=== PATIENT | male | born 1965 | race Asian ===

== ENCOUNTER 2018-08-08 18:08 | Inpatient (IN) | payer MEDICAID ==
[~2018-08-08] VITALS: Ht 175.3 cm; Wt 63.1 kg
[2018-08-08] MEDS ORDERED: OLANZapine 5 MG RAPDIS TABLET PO PRN (19:45)
[2018-08-08] MEDS ORDERED: ZOLPIDEM TARTRATE 10 MG TABLET PO PRN (19:45)
[2018-08-08] MEDS ORDERED: LORazepam 2 MG/ML VIAL ONE (20:14)
[2018-08-08] MEDS ORDERED: DiphenhydrAMINE HCL 50 MG/ML VIAL ONE (20:14)
[2018-08-08] MEDS ORDERED: DiphenhydrAMINE HCL 50 MG/ML VIAL IM ONE (20:15)
[2018-08-08] MEDS ORDERED: HALOPERIDOL LACTATE 5 MG/ML VIAL ONE (20:15)
[2018-08-08] MEDS ORDERED: LORazepam 2 MG/ML VIAL IM ONE (20:15)
[2018-08-08] MEDS ORDERED: HALOPERIDOL LACTATE 5 MG/ML VIAL IM ONE (20:15)
[2018-08-08] MEDS ORDERED: PNEUMOCOCCAL VACCINE POLYVALENT 0.5 ML VIAL [PPSV23] IM ONE (20:15)
[2018-08-08 20:25] VITALS: BP 139/78
[2018-08-08] MEDS: DIVALPROEX SODIUM 500 MG ER TABLET PO SCH (21:00)
[2018-08-08] MEDS ORDERED: RisperiDONE 3 MG TABLET PO SCH (21:00)
[2018-08-09] MEDS: LORazepam 1 MG TABLET PO PRN ×2 (08:00→16:13)
[2018-08-09 08:45] VITALS: BP 125/85
[2018-08-09] MEDS ORDERED: TUBERCULIN, PURIFIED PROTEIN DERIVATIVE 5 TU/0.1 ML SYRINGE ID ONE (14:15)
[2018-08-09] MEDS ORDERED: PROMETHAZINE HCL 25 MG TABLET PO PRN (14:15)
[2018-08-09] MEDS ORDERED: LOPERAMIDE HCL 2 MG CAPSULE PO PRN (14:15)
[2018-08-09] MEDS ORDERED: HydrOXYzine PAMOATE 50 MG CAPSULE PO PRN (14:15)
[2018-08-09] MEDS ORDERED: ACETAMINOPHEN 325 MG TABLET PO PRN (14:15)
[2018-08-09] MEDS ORDERED: MAG HYDROX/AL HYDROX/SIMETH ES 30 ML SUSPENSION UDCUP PO PRN (14:15)
[2018-08-09] MEDS ORDERED: GuaiFENesin/D-METHORPHAN [SUGAR-FREE] 200-20MG/10 ML SYRUP UDCUP PO PRN (14:15)
[2018-08-09] MEDS ORDERED: MAGNESIUM HYDROXIDE SUSPENSION 30 ML UDCUP PO PRN (14:15)
[2018-08-09 16:00] VITALS: BP 137/88
[2018-08-09] MEDS: THIAMINE HCL 100 MG TABLET PO SCH (16:13)
[2018-08-09] MEDS: DIVALPROEX SODIUM 500 MG ER TABLET PO SCH (21:00)
[2018-08-09] MEDS ORDERED: OLANZapine 5 MG RAPDIS TABLET PO SCH (21:00)
[2018-08-10 00:52] VITALS: BP 139/89
[2018-08-10] MEDS: FOLIC ACID 1 MG TABLET PO SCH (08:28)
[2018-08-10] MEDS: MULTIVITAMINS WITH MINERALS, THERAPEUTIC TABLET PO SCH (08:28)
[2018-08-10] MEDS: THIAMINE HCL 100 MG TABLET PO SCH ×2 (08:28→17:00)
[2018-08-10] MEDS: LORazepam 1 MG TABLET PO PRN (08:28)
[2018-08-10 08:47] VITALS: BP 134/70
[2018-08-10 16:00] VITALS: BP 128/85
[2018-08-10] MEDS ORDERED: RisperiDONE 1 MG TABLET PO PRN (17:15)
[2018-08-10] MEDS: RisperiDONE 1 MG TABLET PO SCH (21:00)
[2018-08-10] MEDS ORDERED: RisperiDONE MICROSPHERES 50 MG/2 ML SYRINGE IM ONE (21:00)
[2018-08-10] MEDS: DIVALPROEX SODIUM 500 MG ER TABLET PO SCH (21:00)
[2018-08-11 05:17] VITALS: BP 124/73
[2018-08-11] MEDS: FOLIC ACID 1 MG TABLET PO SCH (08:22)
[2018-08-11] MEDS: THIAMINE HCL 100 MG TABLET PO SCH ×2 (08:23→17:00)
[2018-08-11] MEDS: MULTIVITAMINS WITH MINERALS, THERAPEUTIC TABLET PO SCH (08:23)
[2018-08-11 10:00] VITALS: BP 128/85
[2018-08-11] MEDS: DIVALPROEX SODIUM 500 MG ER TABLET PO SCH (21:00)
[2018-08-11] MEDS: RisperiDONE 1 MG TABLET PO SCH (21:38)
[2018-08-12 06:09] VITALS: BP 118/78
[2018-08-12] MEDS: MULTIVITAMINS WITH MINERALS, THERAPEUTIC TABLET PO SCH (08:45)
[2018-08-12] MEDS: FOLIC ACID 1 MG TABLET PO SCH (08:45)
[2018-08-12] MEDS: THIAMINE HCL 100 MG TABLET PO SCH ×2 (08:46→17:00)
[2018-08-12 16:04] VITALS: BP 131/80
[2018-08-12] MEDS: RisperiDONE 1 MG TABLET PO SCH (20:56)
[2018-08-12] MEDS: DIVALPROEX SODIUM 500 MG ER TABLET PO SCH (20:56)
[2018-08-13] MEDS: FOLIC ACID 1 MG TABLET PO SCH (08:33)
[2018-08-13] MEDS: THIAMINE HCL 100 MG TABLET PO SCH ×2 (08:36→16:19)
[2018-08-13] MEDS: MULTIVITAMINS WITH MINERALS, THERAPEUTIC TABLET PO SCH (08:36)
[2018-08-13] MEDS ORDERED: DiphenhydrAMINE HCL 50 MG/ML VIAL IM ONE (19:15)
[2018-08-13] MEDS ORDERED: HALOPERIDOL LACTATE 5 MG/ML VIAL IM ONE (19:15)
[2018-08-13] MEDS ORDERED: LORazepam 2 MG/ML VIAL IM ONE (19:15)
[2018-08-13] MEDS ORDERED: LORazepam 2 MG/ML VIAL ONE (19:18)
[2018-08-13] MEDS ORDERED: HALOPERIDOL LACTATE 5 MG/ML VIAL ONE (19:18)
[2018-08-13] MEDS ORDERED: DiphenhydrAMINE HCL 50 MG/ML VIAL ONE (19:18)
[2018-08-13] MEDS: RisperiDONE 1 MG TABLET PO SCH (20:45)
[2018-08-13] MEDS: DIVALPROEX SODIUM 500 MG ER TABLET PO SCH (20:45)
[2018-08-14 06:00] VITALS: BP 116/72
[2018-08-14 08:08] VITALS: BP 115/81
[2018-08-14] MEDS: LORazepam 1 MG TABLET PO PRN (08:09)
[2018-08-14] MEDS: MULTIVITAMINS WITH MINERALS, THERAPEUTIC TABLET PO SCH (08:12)
[2018-08-14] MEDS: THIAMINE HCL 100 MG TABLET PO SCH ×2 (08:12→16:28)
[2018-08-14] MEDS: FOLIC ACID 1 MG TABLET PO SCH (08:12)
[2018-08-14] MEDS: DIVALPROEX SODIUM 500 MG ER TABLET PO SCH (20:49)
[2018-08-14] MEDS: RisperiDONE 1 MG TABLET PO SCH (20:49)
[2018-08-15] MEDS: THIAMINE HCL 100 MG TABLET PO SCH ×2 (09:00→17:00)
[2018-08-15] MEDS: MULTIVITAMINS WITH MINERALS, THERAPEUTIC TABLET PO SCH (09:00)
[2018-08-15] MEDS: FOLIC ACID 1 MG TABLET PO SCH (09:00)
[2018-08-15] MEDS: DIVALPROEX SODIUM 500 MG ER TABLET PO SCH (20:44)
[2018-08-15] MEDS ORDERED: RisperiDONE 3 MG TABLET PO SCH (21:00)
[2018-08-16] MEDS: FOLIC ACID 1 MG TABLET PO SCH (09:00)
[2018-08-16] MEDS: MULTIVITAMINS WITH MINERALS, THERAPEUTIC TABLET PO SCH (09:00)
[2018-08-16] MEDS: THIAMINE HCL 100 MG TABLET PO SCH (09:00)
[2018-08-16] MEDS: DIVALPROEX SODIUM 500 MG ER TABLET PO SCH (20:33)
[2018-08-16] MEDS: RisperiDONE 4 MG TABLET PO SCH (20:33)
[2018-08-17] MEDS: RisperiDONE 4 MG TABLET PO SCH (21:00)
[2018-08-17] MEDS: DIVALPROEX SODIUM 500 MG ER TABLET PO SCH (21:00)
[2018-08-18] MEDS ORDERED: HALOPERIDOL LACTATE 5 MG/ML VIAL IM PRN (17:00)
[2018-08-18] MEDS: HALOPERIDOL 1 MG TABLET PO SCH ×2 (17:30→21:12)
[2018-08-18] MEDS: DIVALPROEX SODIUM 500 MG ER TABLET PO SCH (21:12)
[2018-08-19] MEDS: HALOPERIDOL 1 MG TABLET PO SCH ×4 (08:21→21:28)
[2018-08-19] MEDS: DIVALPROEX SODIUM 500 MG ER TABLET PO SCH (21:28)
[2018-08-20] MEDS: HALOPERIDOL 1 MG TABLET PO SCH ×4 (08:14→21:06)
[2018-08-20] MEDS: DIVALPROEX SODIUM 500 MG ER TABLET PO SCH (21:05)
[2018-08-21] MEDS: HALOPERIDOL 1 MG TABLET PO SCH ×5 (09:00→20:35)
[2018-08-21] MEDS: DIVALPROEX SODIUM 500 MG ER TABLET PO SCH (20:35)
[2018-08-22] MEDS: HALOPERIDOL 1 MG TABLET PO SCH ×4 (08:24→20:44)
[2018-08-22] MEDS: DIVALPROEX SODIUM 500 MG ER TABLET PO SCH (21:06)
[2018-08-23 04:14] VITALS: BP 125/86
[2018-08-23] MEDS: HALOPERIDOL 1 MG TABLET PO SCH ×4 (09:12→20:52)
[2018-08-23] MEDS: DIVALPROEX SODIUM 500 MG ER TABLET PO SCH (20:52)
[2018-08-24 06:28] VITALS: BP 108/69
[2018-08-24] MEDS: HALOPERIDOL 1 MG TABLET PO SCH ×4 (08:25→21:01)
[2018-08-24] MEDS ORDERED: RisperiDONE MICROSPHERES 50 MG/2 ML SYRINGE IM SCH (09:00)
[2018-08-24 16:31] VITALS: BP 138/94
[2018-08-24] MEDS: DIVALPROEX SODIUM 500 MG ER TABLET PO SCH (21:01)
[2018-08-25 06:26] VITALS: BP 122/84
[2018-08-25 08:20] VITALS: BP 121/74
[2018-08-25] MEDS: HALOPERIDOL 1 MG TABLET PO SCH ×4 (08:36→20:33)
[2018-08-25 16:00] VITALS: BP 121/80
[2018-08-25] MEDS: DIVALPROEX SODIUM 500 MG ER TABLET PO SCH (20:33)
[2018-08-26 06:08] VITALS: BP 112/76
[2018-08-26 08:17] VITALS: BP 117/77
[2018-08-26] MEDS: HALOPERIDOL 1 MG TABLET PO SCH ×4 (08:32→20:34)
[2018-08-26 16:20] VITALS: BP 137/94
[2018-08-26] MEDS: DIVALPROEX SODIUM 500 MG ER TABLET PO SCH (20:33)
[2018-08-27 06:04] VITALS: BP 118/78
[2018-08-27] MEDS: HALOPERIDOL 1 MG TABLET PO SCH ×4 (08:36→20:18)
[2018-08-27] MEDS: DIVALPROEX SODIUM 500 MG ER TABLET PO SCH (20:18)
[2018-08-28 08:06] VITALS: BP 104/77
[2018-08-28] MEDS: HALOPERIDOL 1 MG TABLET PO SCH ×4 (08:50→20:31)
[2018-08-28 16:26] VITALS: BP 115/93
[2018-08-28] MEDS: LORazepam 1 MG TABLET PO PRN (17:17)
[2018-08-28] MEDS: DIVALPROEX SODIUM 500 MG ER TABLET PO SCH (20:31)
[2018-08-29 02:00] VITALS: BP 114/74
[2018-08-29] MEDS: HALOPERIDOL 1 MG TABLET PO SCH ×2 (08:20→12:59)
[2018-08-29 16:00] VITALS: BP 140/89
[2018-08-29] MEDS ORDERED: PALIPERIDONE PALMITATE 234 MG/1.5 ML SYRINGE IM ONE (17:15)
[2018-08-29] MEDS ORDERED: PALIPERIDONE 1.5 MG ER TABLET PO PRN (17:15)
[2018-08-29] MEDS: DIVALPROEX SODIUM 500 MG ER TABLET PO SCH (20:21)
[2018-08-29] MEDS: PALIPERIDONE 3 MG ER TABLET PO SCH (20:21)
[2018-08-30 06:57] VITALS: BP 114/67
[2018-08-30 16:00] VITALS: BP 125/85
[2018-08-30] MEDS: PALIPERIDONE 3 MG ER TABLET PO SCH (20:20)
[2018-08-30] MEDS: DIVALPROEX SODIUM 500 MG ER TABLET PO SCH (20:20)
[2018-08-31 06:52] VITALS: BP 131/92
[2018-08-31 08:13] VITALS: BP 111/79
[2018-08-31 16:11] VITALS: BP 142/88
[2018-08-31] MEDS: PALIPERIDONE 3 MG ER TABLET PO SCH (20:40)
[2018-08-31] MEDS: DIVALPROEX SODIUM 500 MG ER TABLET PO SCH (20:40)
[2018-09-01 04:26] VITALS: BP 132/78
[2018-09-01 08:42] VITALS: BP 113/74
[2018-09-01] MEDS ORDERED: PALI117D IM (12:15)
[2018-09-01] MEDS ORDERED: DIVA500T52 PO (12:15)
[2018-09-01 16:03] VITALS: BP 118/93
[2018-09-01] MEDS: PALIPERIDONE 3 MG ER TABLET PO SCH (20:50)
[2018-09-01] MEDS: DIVALPROEX SODIUM 500 MG ER TABLET PO SCH (20:50)
[2018-09-02 06:30] VITALS: BP 102/70
[2018-09-02 08:02] VITALS: BP 109/59
[2018-09-02] MEDS ORDERED: DIVA500T52 PO (08:15)
[2018-09-02] MEDS ORDERED: PALI117D IM (08:15)
[2018-09-02] MEDS ORDERED: PALIPERIDONE PALMITATE 156 MG/ML SYRINGE IM ONE (09:00)
[2018-09-02 16:07] VITALS: BP 122/81
== END 2018-09-02 17:15 | disposition home or self-care (01) | DRG 750 ==
LOC: B3A 19:47
PROVIDERS: ADMIT Psychiatry & Neurology Psychiatry; ATTEND Psychiatry & Neurology Psychiatry
DX: F25.0 Schizoaffective disorder, bipolar type (principal); F39 Unspecified mood [affective] disorder; Z79.899 Other long term (current) drug therapy; Z91.14 Patient's other noncompliance with medication regimen
CPT/HCPCS: 87081; J1200; J1630; J2060; J2794

== ENCOUNTER 2018-09-08 20:08 | Emergency (ER) | payer MEDICAID, OTHER ==
[~2018-09-08] VITALS: Ht 172.7 cm; Wt 80.9 kg
[~2018-09-08 20:08] MED LIST: DIVA500T52 PO; PALI117D IM
[2018-09-08 21:01] LABS: BASOPHILS % (AUTO) 0.6 % (0.0-2.0); EOSINOPHILS % (AUTO) 3.6 % (1.0-6.0); HEMATOCRIT 39.5 % (41-53); HEMOGLOBIN 13.3 g/dL (13.5-17.5); LYMPHOCYTES # (AUTO) 1.8 K/uL (1.0-4.8); MEAN CORPUSCULAR HEMOGLOBIN 31.9 pg (26.0-34.0); MEAN CORPUSCULAR HGB CONC 33.8 G/dL (31.0-37.0); MEAN CORPUSCULAR VOLUME 95 fL (80-100); MONOCYTES # (AUTO) 0.9 K/uL (0.1-1.0); MONOCYTES % (AUTO) 8.8 % (2.0-9.0); NEUTROPHILS # (AUTO) 6.6 K/uL (1.8-7.7); PLATELET COUNT (AUTO) 331 K/uL (150-450); RED BLOOD CELL COUNT(AUTO) 4.18 MIL/uL (4.50-5.90); RED CELL DISTRIBUTION WIDTH 13.1 % (11.5-14.5)
[2018-09-08 21:11] LABS: ANION GAP 11 mmol/L (8-16); CALCIUM, TOTAL 8.9 mg/dL (8.8-10.5); CARBON DIOXIDE 23 mmol/L (22-29); CHLORIDE 101 mmol/L (98-107); CREATININE 1.17 mg/dL (0.60-1.30); GLOMERULAR FILTR. RATE CALC > 60 mL/min (>60); GLUCOSE,RANDOM 111 mg/dL (70-110); POTASSIUM 3.8 mmol/L (3.5-5.1); SODIUM SERUM 135 mmol/L (136-145); UREA NITROGEN, BLOOD 16 mg/dL (7-18)
[2018-09-08 21:17] LABS: ALANINE AMINOTRANSFERASE 13 U/L (12-78); ALBUMIN 3.6 g/dL (3.4-5.0); ALKALINE PHOSPHATASE 62 U/L (46-116); ASPARTATE AMINOTRANSFERASE 10 U/L (15-37); BILIRUBIN,TOTAL 0.3 mg/dL (0.1-1.0)
[2018-09-08] MEDS ORDERED: OLANZapine 5 MG RAPDIS TABLET PO PRN (21:30)
[2018-09-08] MEDS ORDERED: ZOLPIDEM TARTRATE 10 MG TABLET PO PRN (21:30)
[2018-09-08] MEDS ORDERED: LORazepam 1 MG TABLET PO PRN (21:30)
[2018-09-08 22:58] LABS: VALPROIC ACID 7 mcg/mL (50-100)
[2018-09-09 14:03] VITALS: BP 119/75
== END 2018-09-09 14:29 | disposition other institution (70) ==
LOC: EMS 20:09
DX: F25.9 Schizoaffective disorder, unspecified (principal); I10 Essential (primary) hypertension; E78.00 Pure hypercholesterolemia, unspecified
CPT/HCPCS: 80053; 80164; 85025; 99285; G0480